=== PATIENT | male | born 1995 | race Caucasian/White ===

== ENCOUNTER 2019-09-29 11:55 | Inpatient (IN) | payer MEDICAID ==
[~2019-09-29] VITALS: Ht 170.2 cm; Wt 66.4 kg
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
[2019-09-29 12:38] LABS: CHLORIDE 109 mmol/L (98-107)
--- NOTE | 2019-09-29 12:42 | NUR ---
PT READY FOR CT.
[2019-09-29 12:57] LABS: ALANINE AMINOTRANSFERASE 18 U/L (12-78); ALBUMIN 3.7 g/dL (3.4-5.0); ALKALINE PHOSPHATASE 54 U/L (45-117); ANION GAP 7 mmol/L (5-15); BILIRUBIN,TOTAL 0.9 mg/dL (0.2-1.0); CALCIUM 8.8 mg/dL (8.5-10.1); CREATININE 0.85 mg/dL (0.7-1.3); TOTAL PROTEIN 7.4 g/dL (6.4-8.2)
--- NOTE | 2019-09-29 13:00 | NUR ---
Pt does not want this RN to call [employer] from [facility]. Pt encouraged for his safety pt still refusing. Pt resting in room.
[2019-09-29 13:11] LABS: MEAN CORPUSCULAR HEMOGLOBIN 29.7 pg (27.5-34.5); MEAN CORPUSCULAR HGB CONC 33.7 g/dL (33.2-36.2); MEAN CORPUSCULAR VOLUME 88.2 fL (81-97); MEAN PLATELET VOLUME 8.6 fL (7.4-10.4); PLATELET COUNT 323 x10^3/uL (130-400); RED BLOOD COUNT 4.93 x10^6/uL (4.38-5.82); RED CELL DISTRIBUTION WIDTH 13.8 % (9.4-14.8)
[2019-09-29] MEDS ORDERED: ONDANSETRON 2MG/ML, 2ML ONE (13:15)
[2019-09-29] MEDS ORDERED: HYDROmorphone 1 MG/ML, 1ML INJ ONE ×2 (13:15→18:48)
[2019-09-29] MEDS: HYDROmorphone 2 MG/ML, 1ML IVPush PRN ×2 (13:19→19:22)
--- NOTE | 2019-09-29 13:20 | NUR ---
PT MEDICATED PER EMAR. iv PATENT AND HAS BLOOD RETURN.
[2019-09-29 13:25] LABS: BASOPHILS # (AUTO) 0.05 x10^3/uL (0-0.1); BASOPHILS % (AUTO) 0 % (0-1); EOSINOPHILS # (AUTO) 0.09 x10^3/uL (0-0.4); EOSINOPHILS % (AUTO) 1 % (1-7); LYMPHOCYTES # (AUTO) 1.05 x10^3/uL (1-3.4); LYMPHOCYTES % (AUTO) 8 % (22-44); MD SCAN; MONOCYTES # (AUTO) 1.46 x10^3/uL (0.2-0.8); MONOCYTES % (AUTO) 11 % (2-9); NEUTROPHILS # (AUTO) 10.27 x10^3/uL (1.8-6.8); NEUTROPHILS % (AUTO) 80 % (42-75)
[2019-09-29] MEDS ORDERED: ONDANSETRON 2MG/ML, 2ML IVPush ONE (13:30)
[2019-09-29] MEDS ORDERED: SODIUM CHLORIDE FLUSH 10ML SYR IVF ONE (13:30)
[2019-09-29] MEDS ORDERED: AMPICILLIN/SULBACTAM 3 GM in SODIUM CHLORIDE 0.9% 100 ML IV ONE (14:30)
--- NOTE | 2019-09-29 15:52 | NUR ---
PT MEDICATED PER EMAR.
--- NOTE | 2019-09-29 17:00 | NUR ---
md amador to bedside
[2019-09-29] MEDS ORDERED: hydrALAzine 20 MG/ML, 1ML IVPush PRN (18:00)
[2019-09-29] MEDS ORDERED: morphine SULFATE 10 MG/ML, 1ML IVPush PRN (18:00)
[2019-09-29] MEDS ORDERED: BISACODYL 10 MG SUPP PR PRN (18:00)
[2019-09-29] MEDS ORDERED: ACETAMINOPHEN 325 MG TABLET PO PRN (18:00)
[2019-09-29] MEDS ORDERED: DOCUSATE 100 MG CAPSULE PO PRN (18:00)
[2019-09-29] MEDS ORDERED: POLYETHYLENE GLYCOL 17 GM PACKET PO PRN (18:00)
[2019-09-29] MEDS ORDERED: AMPICILLIN/SULBACTAM 3 GM in SODIUM CHLORIDE 0.9% 100 ML IV SCH (18:00)
[2019-09-29 18:38] LABS: C-REACTIVE PROTEIN, QUANT 1.1 mg/dL (0.02-0.49); FREE T4 (FREE THYROXINE) 0.89 ng/dL (0.76-1.46)
[2019-09-29] MEDS: SODIUM CHLORIDE 0.9% 1,000 ML IV SCH (18:38)
--- NOTE | 2019-09-29 19:22 | NUR ---
Pts wound cleaned. Pt medicated for pain.
[2019-09-29 19:24] LABS: HCT (SEDRATE) 43.1 % (39.2-51.8)
--- NOTE | 2019-09-29 20:07 | NUR ---
REPORT TO MEIR LUX
[2019-09-29 20:50] VITALS: BP 104/68
[2019-09-29] MEDS: AMPICILLIN/SULBACTAM 3 GM in SODIUM CHLORIDE 0.9% 100 ML IV SCH (23:47)
[2019-09-30 03:40] VITALS: BP 102/53
[2019-09-30 05:39] LABS: BASOPHILS # (AUTO) 0.06 x10^3/uL (0-0.1); BASOPHILS % (AUTO) 1 % (0-1); EOSINOPHILS # (AUTO) 0.07 x10^3/uL (0-0.4); EOSINOPHILS % (AUTO) 1 % (1-7); LYMPHOCYTES # (AUTO) 1.07 x10^3/uL (1-3.4); LYMPHOCYTES % (AUTO) 13 % (22-44); MD NO; MEAN CORPUSCULAR HEMOGLOBIN 29.5 pg (27.5-34.5); MEAN CORPUSCULAR VOLUME 89.2 fL (81-97); MEAN PLATELET VOLUME 8.2 fL (7.4-10.4); MONOCYTES # (AUTO) 0.98 x10^3/uL (0.2-0.8); MONOCYTES % (AUTO) 12 % (2-9); NEUTROPHILS % (AUTO) 73 % (42-75); PLATELET COUNT 264 x10^3/uL (130-400); RED BLOOD COUNT 4.85 x10^6/uL (4.38-5.82)
[2019-09-30 05:44] LABS: ALANINE AMINOTRANSFERASE 17 U/L (12-78); ALBUMIN 3.3 g/dL (3.4-5.0); ANION GAP 7 mmol/L (5-15); CALCIUM 8.5 mg/dL (8.5-10.1); CHLORIDE 110 mmol/L (98-107); CREATININE 0.82 mg/dL (0.7-1.3)
[2019-09-30 05:46] LABS: ALKALINE PHOSPHATASE 54 U/L (45-117); BILIRUBIN,TOTAL 0.7 mg/dL (0.2-1.0); CHOL/HDL RATIO 2.2; CHOLESTEROL, TOTAL 107 mg/dL (140-239); HDL CHOL % 45 % (26-37); HDL CHOLESTEROL (DIRECT) 48 mg/dL (40-60); LDL CHOLESTEROL,CALCULATED 47 mg/dL (54-169); TRIGLYCERIDES 61 mg/dL (50-200); VLDL CHOLESTEROL 12 mg/dL (0-25)
[2019-09-30] MEDS: AMPICILLIN/SULBACTAM 3 GM in SODIUM CHLORIDE 0.9% 100 ML IV SCH ×3 (05:56→20:11)
[2019-09-30] MEDS: SODIUM CHLORIDE 0.9% 1,000 ML IV SCH ×2 (05:59→12:30)
[2019-09-30 07:29] VITALS: BP 118/65
[2019-09-30 13:46] VITALS: BP 114/60
[2019-09-30] MEDS ORDERED: EPINEPHRINE 1 MG/ML, 1ML ONE (15:46)
[2019-09-30] MEDS ORDERED: OXYMETAZOLINE NASAL SPRAY 0.05%, 15ML ONE (15:46)
[2019-09-30] MEDS ORDERED: BALANCED SALT OPHTH IRRIG SOLN 18ML ONE (15:46)
[2019-09-30] MEDS ORDERED: LIDOCAINE 1%, 20ML ONE (15:47)
[2019-09-30] MEDS ORDERED: FENTANYL PF 250 MCG/5ML ONE (16:04)
[2019-09-30] MEDS ORDERED: MIDAZOLAM 1 MG/ML, 2ML ONE (16:04)
[2019-09-30] MEDS ORDERED: PROPOFOL 10 MG/ML, 20ML ONE (17:12)
[2019-09-30] MEDS ORDERED: ROCURONIUM 10MG/ML,5ML ONE (17:12)
[2019-09-30] MEDS ORDERED: DEXAMETHASONE 4 MG/ML, 1ML ONE (17:12)
[2019-09-30] MEDS ORDERED: GLYCOPYRROLATE 0.2MG/1ML, 5ML ONE (17:12)
[2019-09-30] MEDS ORDERED: NEOSTIGMINE 1 MG/ML, 10ML ONE (17:12)
[2019-09-30] MEDS ORDERED: SUCCINYLCHOLINE 20 MG/ML, 10ML ONE (17:12)
[2019-09-30] MEDS ORDERED: ONDANSETRON 2MG/ML, 2ML ONE (17:12)
[2019-09-30] MEDS ORDERED: LIDOCAINE-MPF 2% ,5ML ONE (17:26)
[2019-09-30] MEDS ORDERED: OXYcodone 5 MG/5 ML ORAL.SOL UDC PO PRN (17:30)
[2019-09-30] MEDS ORDERED: MIDAZOLAM 1 MG/ML, 2ML IV PRN (17:30)
[2019-09-30] MEDS ORDERED: METOPROLOL 1 MG/ML, 5ML IV PRN (17:30)
[2019-09-30] MEDS ORDERED: ALBUTEROL/IPRATROPIUM 2.5MG/0.5MG, 3 ML NPPB PRN (17:30)
[2019-09-30] MEDS ORDERED: PROMETHAZINE 25 MG/ML, 1ML IV PRN (17:30)
[2019-09-30] MEDS ORDERED: FENTANYL PF 100 MCG/2ML IV PRN (17:30)
[2019-09-30] MEDS ORDERED: MEPERIDINE/PF 25MG/ML,1ML IVPush PRN (17:30)
[2019-09-30] MEDS ORDERED: hydrALAzine 20 MG/ML, 1ML IV PRN (17:30)
[2019-09-30] MEDS ORDERED: HYDROmorphone 2 MG/ML, 1ML IVPush PRN (17:30)
[2019-09-30] MEDS ORDERED: SUGAMMADEX 200 MG/2 ML IVPush ONE (18:01)
[2019-09-30] MEDS ORDERED: HYDROmorphone 1 MG/ML, 1ML INJ ONE (18:55)
[2019-09-30 19:45] VITALS: BP 147/85
[2019-09-30] MEDS: OXYcodone IR 5MG TABLET PO PRN (20:11)
[2019-09-30 23:19] VITALS: BP 118/73
[2019-10-01] MEDS: SODIUM CHLORIDE 0.9% 1,000 ML IV SCH ×2 (00:23→10:00)
[2019-10-01] MEDS: OXYcodone IR 5MG TABLET PO PRN ×2 (01:56→10:44)
[2019-10-01] MEDS: AMPICILLIN/SULBACTAM 3 GM in SODIUM CHLORIDE 0.9% 100 ML IV SCH ×3 (02:00→15:00)
[2019-10-01 03:57] VITALS: BP 124/71
[2019-10-01 05:25] LABS: BASOPHILS % (AUTO) 0 % (0-1); EOSINOPHILS # (AUTO) 0.01 x10^3/uL (0-0.4); EOSINOPHILS % (AUTO) 0 % (1-7); LYMPHOCYTES # (AUTO) 0.55 x10^3/uL (1-3.4); LYMPHOCYTES % (AUTO) 5 % (22-44); MD NO; MEAN CORPUSCULAR HEMOGLOBIN 29.5 pg (27.5-34.5); MEAN CORPUSCULAR HGB CONC 33.3 g/dL (33.2-36.2); MEAN CORPUSCULAR VOLUME 88.4 fL (81-97); MEAN PLATELET VOLUME 8.6 fL (7.4-10.4); MONOCYTES # (AUTO) 0.66 x10^3/uL (0.2-0.8); MONOCYTES % (AUTO) 6 % (2-9); NEUTROPHILS # (AUTO) 9.71 x10^3/uL (1.8-6.8); NEUTROPHILS % (AUTO) 89 % (42-75); PLATELET COUNT 321 x10^3/uL (130-400); RED BLOOD COUNT 5.04 x10^6/uL (4.38-5.82); RED CELL DISTRIBUTION WIDTH 13.6 % (9.4-14.8)
[2019-10-01 05:30] LABS: ANION GAP 5 mmol/L (5-15); CALCIUM 8.4 mg/dL (8.5-10.1); CHLORIDE 106 mmol/L (98-107); CREATININE 0.78 mg/dL (0.7-1.3)
[2019-10-01 10:15] VITALS: BP 101/66
[2019-10-01 12:47] VITALS: BP 108/66
[2019-10-01] MEDS ORDERED: AMOX1TAB64 PO (15:15)
[2019-10-01 16:00] VITALS: BP 110/60
== END 2019-10-01 16:30 | disposition home or self-care (01) | DRG 92 ==
LOC: ED 16:22 → EDIP 17:47 → 3N 20:20 → 4NE 09-30 19:45 → DCLOUNGE 10-01 16:20
PROVIDERS: ADMIT Internal Medicine; ATTEND Family Medicine
PROC: 0CDXXZ0 Extraction of Lower Tooth, Single, External Approach (ICD-10-PCS; 2019-09-30)
PROC: 0NSV04Z Reposition Left Mandible with Internal Fixation Device, Open Approach (ICD-10-PCS; principal; 2019-09-30 16:00)
DX: S02.2XXA Fracture of nasal bones, initial encounter for closed fracture (principal); S02.652A Fracture of angle of left mandible, initial encounter for closed fracture; S02.5XXA Fracture of tooth (traumatic), initial encounter for closed fracture; S00.03XA Contusion of scalp, initial encounter; F15.10 Other stimulant abuse, uncomplicated; S02.66XA Fracture of symphysis of mandible, initial encounter for closed fracture; F17.200 Nicotine dependence, unspecified, uncomplicated; Y08.89XA Assault by other specified means, initial encounter; Y93.89 Activity, other specified; Y92.89 Other specified places as the place of occurrence of the external cause; Y99.8 Other external cause status
CPT/HCPCS: J3490 ×2; 36415; 70450; 70486; 72125; 80048; 80053; 80061; 80307; 82962; 83036; 83735; 84439; 84443; 85025; 85651; 86140; 87040; 88300; 96374; 96375; 96376; C1713; G0378; J0171; J0295; J1100; J1170; J2250; J2405; J2704; J2710; J3010; J0330; J2270; J7030

== ENCOUNTER 2021-02-16 05:53 | Emergency (ER) | payer MEDICAID ==
[~2021-02-16 05:53] MED LIST: AMOX1TAB64 PO
[2021-02-16 05:54] VITALS: BP 121/60
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
== END 2021-02-16 06:23 | disposition left against medical advice (07) ==
LOC: ED 06:00
DX: R06.00 Dyspnea, unspecified (principal); F15.10 Other stimulant abuse, uncomplicated; R00.0 Tachycardia, unspecified; F17.200 Nicotine dependence, unspecified, uncomplicated
CPT/HCPCS: 93005; 99283

== ENCOUNTER 2021-03-28 21:04 | Emergency (ER) | payer MEDICAID ==
[~2021-03-28] VITALS: Ht 170.2 cm; Wt 62.0 kg
--- NOTE | 2021-03-28 22:46 | NUR ---
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
[2021-03-28] MEDS ORDERED: SODIUM CHLORIDE 0.9% 1,000ML IVBOLUS ONE (23:30)
[2021-03-28 23:42] LABS: BASOPHILS % (AUTO) 0 % (0-1); EOSINOPHILS % (AUTO) 3 % (1-7); LYMPHOCYTES % (AUTO) 10 % (22-44); MEAN CORPUSCULAR HEMOGLOBIN 29.3 pg (27.5-34.5); MEAN CORPUSCULAR HGB CONC 34.1 g/dL (33.2-36.2); MEAN PLATELET VOLUME 8.4 fL (7.4-10.4); MONOCYTES % (AUTO) 17 % (2-9); NEUTROPHILS % (AUTO) 70 % (42-75); PLATELET COUNT 223 x10^3/uL (130-400); RED BLOOD COUNT 5.08 x10^6/uL (4.38-5.82); RED CELL DISTRIBUTION WIDTH 13.5 % (9.4-14.8)
[2021-03-28 23:46] LABS: ALANINE AMINOTRANSFERASE 26 U/L (12-78); ANION GAP 3 mmol/L (5-15); CALCIUM 8.5 mg/dL (8.5-10.1); CHLORIDE 99 mmol/L (98-107); CREATININE 0.65 mg/dL (0.7-1.3)
--- NOTE | 2021-03-28 23:49 | NUR ---
PT GIVEN URINAL, AWARE OF NEED FOR SAMPLE.
[2021-03-28 23:50] LABS: ALKALINE PHOSPHATASE 58 U/L (45-117); BILIRUBIN,TOTAL 0.4 mg/dL (0.2-1.0); TOTAL PROTEIN 6.8 g/dL (6.4-8.2); TROPONIN I < 0.015 ng/mL (0.000-0.045)
--- NOTE | 2021-03-29 00:19 | NUR ---
Note denia in EDM - 03/29/21 at 0020 by TSHUTES PT HAS ISABELL WRAP IN PLACE. ~1CM LAC TO R INNER WRIST. PT UNSURE IF TD UPT. RBS 110. MD AT BS. WILL CTM.
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
[2021-03-29] MEDS ORDERED: CEFTRIAXONE 1,000 MG in DEXTROSE 5% 50 ML IVPB ONE (01:00)
[2021-03-29] MEDS ORDERED: CEFTRIAXONE 1,000 MG ONE (01:11)
[2021-03-29] MEDS ORDERED: IBUPROFEN 800 MG TABLET ONE (01:44)
[2021-03-29 01:57] VITALS: BP 121/51
== END 2021-03-29 01:58 | disposition home or self-care (01) ==
LOC: ED 22:55
DX: L03.116 Cellulitis of left lower limb (principal); L03.115 Cellulitis of right lower limb; R60.0 Localized edema; F15.10 Other stimulant abuse, uncomplicated; Z72.9 Problem related to lifestyle, unspecified; F17.200 Nicotine dependence, unspecified, uncomplicated
CPT/HCPCS: 36415; 71045; 80053; 83605; 83880; 84145; 84484; 85025; 87040; 93005; 96361; 96374; 99285; J0696; J7030